=== PATIENT | male | born 1995 | race Hispanic/Latino ===

== ENCOUNTER 2018-07-21 12:09 | Emergency (ER) | payer OTHER ==
[~2018-07-21] VITALS: Ht 170.2 cm; Wt 72.7 kg
[2018-07-21] MEDS ORDERED: ONDANSETRON 4 MG ORAL DISINTEGRATING TAB (Q0162 PER 1MG) PO ONE (14:00)
[2018-07-21] MEDS ORDERED: ZOFR4TAB16 PO (14:41)
[2018-07-21 14:58] VITALS: BP 117/62
== END 2018-07-21 15:03 | disposition home or self-care (01) ==
LOC: M ED 12:09
DX: A08.4 Viral intestinal infection, unspecified (principal)
CPT/HCPCS: 99283; Q0162

== ENCOUNTER 2019-02-04 21:36 | Emergency (ER) | payer OTHER ==
[~2019-02-04] VITALS: Ht 170.2 cm; Wt 76.0 kg
[~2019-02-04 21:36] MED LIST: ZOFR4TAB16 PO
[2019-02-04 23:35] LABS: CHLAMYDIA DNA AMPLIFICATION NEGATIVE (NEGATIVE); GC DNA AMPLIFICATION NEGATIVE (NEGATIVE)
[2019-02-05] MEDS ORDERED: DOXY100C37 PO (00:55)
[2019-02-05 01:03] VITALS: BP 123/73
[2019-02-05 07:18] LABS: HEPATITIS A ANTIBODY IGM NEGATIVE (NEGATIVE); HEPATITIS B CORE ANTIBODY IGM NEGATIVE (NEGATIVE); HEPATITIS B SURFACE ANTIGEN NEGATIVE (NEGATIVE); HEPATITIS C VIRUS ABY INDEX 0.1 INDEX (<0.8)
== END 2019-02-05 01:04 | disposition home or self-care (01) ==
LOC: M ED 21:36
DX: Z20.2 Contact with and (suspected) exposure to infections with a predominantly sexual mode of transmission (principal); R10.30 Lower abdominal pain, unspecified; F17.200 Nicotine dependence, unspecified, uncomplicated